=== PATIENT | male | born 1990 | race Caucasian/White ===

== ENCOUNTER 2017-04-17 20:18 | Emergency (ER) | payer BC, OTHER ==
[2017-04-17 21:49] LABS: Hematocrit 41 % (42-52); Hemoglobin 13.7 g/dl (14.0-18.0); Mean Corpuscular HGB Conc 33 g/dl (31-36); Mean Corpuscular Hemoglobin 28 pg (27-31); Mean Corpuscular Volume 83 fL (80-94); Mean Platelet Volume 8 um3 (7.4-10.4); Red Blood Count 4.98 10^6/ul (4.0-5.4); Red Cell Distribution Width 14 % (10.5-15); White Blood Count 15.3 10^3/ul (3.5-10.8)
[2017-04-17 22:06] LABS: Albumin 3.8 g/dL (3.2-5.2); BUN/Creatinine Ratio 14.1 (8-20); Calcium 9.3 mg/dL (8.6-10.3); EGFR African American 139.1 (>60); EGFR Non-African American 108.1 (>60); Globulin 3.8 g/dL (2-4); Potassium 3.7 mmol/L (3.5-5.0); Total Bilirubin 0.4 mg/dL (0.2-1.0); Total Protein 7.6 g/dL (6.4-8.9)
--- NOTE | 2017-04-17 22:06 | RAD ---
Indication: Chest pain. 2 views of the chest including dual energy PA views demonstrate no mediastinal shift. Heart is of normal size and configuration. Lung ng are clear. IMPRESSION: No active cardiopulmonary disease is noted.
[2017-04-17 22:19] VITALS: BP 138/85
== END 2017-04-17 22:18 | disposition left against medical advice (07) ==
LOC: ED 20:18
DX: R07.9 Chest pain, unspecified (principal); Z53.21 Procedure and treatment not carried out due to patient leaving prior to being seen by health care provider
CPT/HCPCS: 36415; 71010; 80053; 84484; 85025; 93005

== ENCOUNTER 2017-11-05 08:50 | Emergency (ER) | payer BC ==
[2017-11-05 09:59] LABS: Urine Appearance Clear; Urine Blood Negative (Negative); Urine Color Yellow; Urine Ketones Negative (Negative); Urine Protein Negative (Negative); Urine Specific Gravity 1.012 (1.010-1.030); Urine Urobilinogen Negative (Negative)
[2017-11-05 10:02] LABS: ABS Basophils 0.1 10^3/ul (0-0.2); ABS Eosinophils 0.1 10^3/ul (0-0.6); ABS Lymphocytes 1.5 10^3/ul (1.0-4.8); ABS Monocytes 0.3 10^3/ul (0-0.8); ABS Neutrophils 3.1 10^3/ul (1.5-7.7); ABS Nucleated RBC 0 10^3/ul; Eosinophil % 1.7 % (0-6); Hematocrit 47 % (42-52); Hemoglobin 15.9 g/dl (14.0-18.0); Lymphocyte % 30.3 % (25-47); Mean Corpuscular HGB Conc 34 g/dl (31-36); Mean Corpuscular Hemoglobin 29 pg (27-31); Mean Corpuscular Volume 86 fL (80-94); Mean Platelet Volume 8.7 um3 (7.4-10.4); Nucleated Red Blood Cells % 0.2; Platelet Count 269 10^3/ul (150-450); Red Blood Count 5.44 10^6/ul (4.0-5.4); Red Cell Distribution Width 13 % (10.5-15)
[2017-11-05] MEDS ORDERED: LORazepam TAB(*) 1 MG PO ONE (12:55)
[2017-11-05 14:41] VITALS: BP 130/82
--- NOTE | 2017-11-05 14:52 | ED ---
Brett Win Julia, scribed for Rosemarie Damian MD on 11/05/17 at 0924 . Psychiatric Complaint - HPI Summary HPI Summary: This patient is a 27 year old M presenting to [facility] with a chief complaint of increased anxiety for the past week worsening this morning. Symptoms aggravated by an email this morning from his psychiatrist postponing their appointment. He hasnt seen his psychiatrist in months. Pt typically takes Xanax for anxiey but hasnt been taking it. Patient denies SI, HI, visual or auditory hallucinations , and medical complaints. PMHx of anxiety. Denies other medical history. - History Of Current Complaint Chief Complaint: EDMentalHealth Time Seen by Provider: 11/05/17 09:09 Hx Obtained From: Patient Onset/Duration: Lasting Days, Worse Since - this morning Timing: Constant Aggravating Factor(s): Recent Stress, Medication Non-compliance Alleviating Factor(s): Counseling Related History: Positive For: Prior Psychiatric Issues Has Suicidal: Denies: Thoughts Has Homicidal: Denies: Thoughts - Allergies/Home Medications Allergies/Adverse Reactions: Allergies Allergy/AdvReac Type Severity Reaction Status Date / Time No Known Allergies Allergy Verified 11/05/17 08:51 Home Medications: Home Medications ALPRAZolam TAB* [Xanax TAB*] 1 mg PO TID PRN MDD a 11/05/17 [History Confirmed 11/05/17] Amphetamine MIXED SALTS TAB* [Adderall TAB*] 15 mg PO BID 11/05/17 [History Confirmed 11/05/17] FLUoxetine CAP* [PROzac CAP*] 40 mg PO DAILY 11/05/17 [History Confirmed ] Topiramate TAB(*) [Topamax 100 mg tab] 100 mg PO QPM 11/05/17 [History Confirmed 11/05/17] Trifluoperazine HCl 2 mg PO DAILY 11/05/17 [History Confirmed 11/05/17] buPROPion SR TAB* [Wellbutrin SR TAB*] 150 mg PO DAILY 11/05/17 [History Confirmed 11/05/17] PMH/Surg Hx/FS Hx/Imm Hx Endocrine/Hematology History: Denies: Hx Diabetes Cardiovascular History: Denies: Hx Myocardial Infarction Sensory History: Reports: Hx Contacts or Glasses Opthamlomology History: Reports: Hx Contacts or Glasses Psychiatric History: Reports: Hx Anxiety, Hx Depression, Hx Community Mental Health Tx, Hx Bipolar Disorder, Hx Suicide Attempt Denies: Hx Eating Disorder, Hx of Violent Episodes Against Others Infectious Disease History: Yes Infectious Disease History: Denies: Traveled Outside the [place] in Last 30 Days - Family History Known Family History: Positive: Hypertension - Social History Alcohol Use: Weekly Substance Use Type: Reports: None Smoking Status (MU): Never Smoked Tobacco Review of Systems Negative: Fever Positive: Anxious All Other Systems Reviewed And Are Negative: Yes Physical Exam - Summary Physical Exam Summary: Appearance: Well-appearing, Well-nourished Skin: Warm, Dry, No rash Eyes: Normal, PERRL, EOMI, sclera anicteric ENT: Normal Neck: Supple, nontender Respiratory: Clear to auscultation Cardiovascular: S1, S2, no murmur, no rub, no gallop Abdomen: Soft, nontender, no organomegaly Bowel sounds: Present Musculoskeletal: Normal, Strength/ROM Intact, no edema, pulses symmetrical Neurological: Normal, A&Ox3, , follows commands, gait not tested, Psychiatric: affect normal, behavior appropriate, dressed appropriately, judgment intact, linear thought process and content, no SI, no HI Triage Information Reviewed: Yes Vital Signs On Initial Exam: Initial Vitals Temp Pulse Resp BP Pulse Ox 97.4 F 83 16 136/88 98 11/05/17 08:52 11/05/17 08:52 11/05/17 08:52 11/05/17 08:52 11/05/17 08:52 Vital Signs Reviewed: Yes Diagnostics - Vital Signs Vital Signs Temp Pulse Resp BP Pulse Ox 11/05/17 08:52 97.4 F 83 16 136/88 98 - Laboratory Result Diagrams: 11/05/17 09:42 11/05/17 09:43 Lab Statement: Any lab studies that have been ordered have been reviewed, and results considered in the medical decision making process. Course/Dx - Course Course Of Treatment: 27 y/o male presents with recent increased anxiety. Pt denies SI, HI, and visual/auditory hallucinations. Labwork is obtained and pt is medically cleared for mental health evaluation. After mental health evaluation pt will be discharged by Dr. Guardado with unspecified anxiety. - Differential Dx/Clinical Impression Provider Diagnosis: Anxiety disorder, unspecified Discharge - Sign-Out/Discharge Documenting (check all that apply): Discharge/Admit/Transfer - Discharge Plan Condition: Stable Disposition: HOME Referrals: No Primary Care Phys,NOPCP [Primary Care Provider] - The documentation as recorded by the Brett pham Julia accurately reflects the service I personally performed and the decisions made by , Rosemarie Damian MD.
== END 2017-11-05 14:39 | disposition home or self-care (01) ==
LOC: ED 08:50
DX: F41.9 Anxiety disorder, unspecified (principal)
CPT/HCPCS: 36415; 80053; 80307; 80320; 80329; 81003; 81015; 84443; 85025; 87086; 99283; A9270-GY; G0480